=== PATIENT | male | born 1950 | race Caucasian/White ===

== ENCOUNTER 2020-03-02 07:10 | Emergency (ER) | payer OTHER, MEDICAID ==
[~2020-03-02] VITALS: Ht 167.6 cm; Wt 74.8 kg
[2020-03-02 07:18] VITALS: BP 149/79
--- NOTE | 2020-03-02 07:18 | NUR ---
69 Y/O M CARLOS FROM [facility]. PER EMS PT UPSET DUE TO UNABLE TO OBTAIN HAIRCUT, [facility] STAFF WOULD NOT LET HIM GO OUT. PT PRESENTS CALM,A/OX[facility],AMBULATORY,VSS,EUPNIC. PT DENIES DTS/DTO/SI. PER PT ONLY WANTED A HAIRCUT AND WOULDNT LET GO. PT DENIES DYSPNEA,CHEST PAIN, DISCOMFORT. NKA. HX,RX-SEE CHART
--- NOTE | 2020-03-02 07:30 | NUR ---
ERMD AT BEDSIDE
[2020-03-02 09:11] VITALS: BP 140/72
--- NOTE | 2020-03-02 09:11 | NUR ---
Patient discharged with v/s stable. Written and verbal after care instructions given and explained. Patient verbalized understanding. Wheel Chair Assisted with to home. All questions addressed prior to discharge. Advised to follow up with PMD.
== END 2020-03-02 09:11 | disposition home or self-care (01) ==
LOC: MED 07:10
DX: F03.90 Unspecified dementia, unspecified severity, without behavioral disturbance, psychotic disturbance, mood disturbance, and anxiety (principal); Z00.00 Encounter for general adult medical examination without abnormal findings
CPT/HCPCS: 99283